=== PATIENT | female | born 1945 | race Two or more races ===

== ENCOUNTER 2020-02-06 16:03 | Inpatient (IN) | payer MEDICARE, MEDICAID ==
[~2020-02-06] VITALS: Ht 165.1 cm; Wt 75.1 kg
[2020-02-06] MEDS ORDERED: RIVA15TA PO (16:51)
[2020-02-06] MEDS ORDERED: CAND1TAB PO (16:52)
[2020-02-06] MEDS ORDERED: TRAM50TA2 PO (16:52)
[2020-02-06] MEDS ORDERED: METO-99 PO (16:52)
--- NOTE | 2020-02-06 16:53 | NUR ---
pt to ed from w covid sx (sob, fatigue) and afib rvr 130-140s. not new onset, anticoag w/ xarelto, sts med compliant. vss. lungs ctab. no cough. son at bedside to translate, swiss. labs drawn piv est. call gil. as
[2020-02-06 17:12] LABS: BASOPHILS # (AUTO) 0.03 x10^3/uL (0-0.1); BASOPHILS % (AUTO) 0 % (0-1); EOSINOPHILS # (AUTO) 0.13 x10^3/uL (0-0.4); EOSINOPHILS % (AUTO) 2 % (1-7); LYMPHOCYTES # (AUTO) 0.95 x10^3/uL (1-3.4); LYMPHOCYTES % (AUTO) 14 % (22-44); MD NO; MEAN CORPUSCULAR HEMOGLOBIN 31.2 pg (27.0-34.8); MEAN PLATELET VOLUME 9.2 fL (7.4-10.4); MONOCYTES % (AUTO) 6 % (2-9); NEUTROPHILS % (AUTO) 78 % (42-75); PLATELET COUNT 226 x10^3/uL (130-400); RED BLOOD COUNT 4.67 x10^6/uL (3.82-5.3); RED CELL DISTRIBUTION WIDTH 13.6 % (9.6-15.2)
[2020-02-06] MEDS ORDERED: DILTIAZEM 5 MG/ML, 5ML IVPush STA (17:15)
[2020-02-06 17:24] LABS: ANION GAP 8 mmol/L (5-15); CALCIUM 8.6 mg/dL (8.5-10.1); CHLORIDE 102 mmol/L (98-107)
[2020-02-06] MEDS ORDERED: DILTIAZEM 5 MG/ML, 5ML ONE (17:26)
[2020-02-06 17:29] LABS: ALANINE AMINOTRANSFERASE 38 U/L (12-78); ALKALINE PHOSPHATASE 111 U/L (45-117); BILIRUBIN,TOTAL 0.5 mg/dL (0.2-1.0); CREATININE 0.99 mg/dL (0.55-1.02); TOTAL PROTEIN 7.6 g/dL (6.4-8.2); TROPONIN I < 0.015 ng/mL (0.000-0.045)
--- NOTE | 2020-02-06 17:37 | NUR ---
dilt per mar w/ improvement to afib 80-90s. bp stable. nad, pt drowsing. as
--- NOTE | 2020-02-06 19:11 | NUR ---
failed roadtest desatted to 85% on RA while walking when walked by edta. as
--- NOTE | 2020-02-06 19:44 | NUR ---
pt tbadm cards. as
--- NOTE | 2020-02-06 20:20 | NUR ---
li benton: [phone]
--- NOTE | 2020-02-06 20:54 | NUR ---
pt remains afib 100s. nad. awaiting bed. as
[2020-02-06] MEDS ORDERED: DILTIAZEM 5 MG/ML, 5ML IVPush PRN (21:30)
[2020-02-06] MEDS ORDERED: ONDANSETRON 2MG/ML, 2ML IVPush PRN (21:30)
[2020-02-06] MEDS ORDERED: MELATONIN 5 MG TABLET PO PRN (21:30)
[2020-02-06] MEDS ORDERED: ACETAMINOPHEN 325 MG TABLET PO PRN (21:30)
--- NOTE | 2020-02-06 21:35 | NUR ---
report to xenia robert. as
[2020-02-06 22:07] VITALS: BP 148/76
[2020-02-06] MEDS: METOPROLOL TARTRATE 50 MG TAB PO SCH (22:50)
[2020-02-06 23:09] VITALS: BP 148/76
[2020-02-07 00:26] VITALS: BP 128/81
[2020-02-07 07:30] VITALS: BP 106/69
[2020-02-07] MEDS: SENNA/DOCUSATE TABLET PO SCH (08:29)
[2020-02-07] MEDS: HYDROCHLOROTHIAZIDE 12.5 MG CAPSULE PO SCH (08:29)
[2020-02-07] MEDS: RIVAROXABAN 15 MG TABLET PO SCH (08:30)
[2020-02-07] MEDS: METOPROLOL TARTRATE 50 MG TAB PO SCH ×2 (08:30→20:33)
[2020-02-07] MEDS ORDERED: LOSARTAN 100 MG TAB PO SCH (09:00)
[2020-02-07 13:05] VITALS: BP 121/76
[2020-02-07 19:38] VITALS: BP 121/79
[2020-02-08 00:24] VITALS: BP 123/79
[2020-02-08 07:10] LABS: CREATININE 0.96 mg/dL (0.55-1.02)
[2020-02-08 07:55] VITALS: BP 131/74
[2020-02-08] MEDS ORDERED: LOSARTAN 50MG TABLET PO SCH (09:01)
[2020-02-08] MEDS: RIVAROXABAN 15 MG TABLET PO SCH (09:03)
[2020-02-08] MEDS: METOPROLOL TARTRATE 50 MG TAB PO SCH ×2 (09:03→20:35)
[2020-02-08] MEDS: HYDROCHLOROTHIAZIDE 12.5 MG CAPSULE PO SCH (09:03)
[2020-02-08] MEDS: SENNA/DOCUSATE TABLET PO SCH (09:03)
[2020-02-08] MEDS: LOSARTAN 50MG TABLET PO SCH (09:26)
[2020-02-08 13:26] VITALS: BP 140/86
[2020-02-08 18:34] VITALS: BP 140/77
[2020-02-09 00:19] VITALS: BP 119/79
[2020-02-09 07:34] VITALS: BP 122/64
[2020-02-09 09:26] VITALS: BP 129/85
[2020-02-09] MEDS: LOSARTAN 50MG TABLET PO SCH (09:27)
[2020-02-09] MEDS: METOPROLOL TARTRATE 50 MG TAB PO SCH (09:27)
[2020-02-09] MEDS: RIVAROXABAN 15 MG TABLET PO SCH (09:28)
[2020-02-09] MEDS: HYDROCHLOROTHIAZIDE 12.5 MG CAPSULE PO SCH (09:28)
[2020-02-09] MEDS: SENNA/DOCUSATE TABLET PO SCH (09:28)
[2020-02-09] MEDS ORDERED: METO50TA82 PO (13:51)
[2020-02-09 13:56] VITALS: BP 104/68
== END 2020-02-09 17:02 | disposition home or self-care (01) | DRG 189 ==
LOC: ED 18:15 → EDIP 20:04 → INTOOBSV 20:04 → 4EST 21:58 → OBSVTOIN 02-08 14:32
PROVIDERS: ADMIT Internal Medicine; ATTEND Internal Medicine
DX: J96.01 Acute respiratory failure with hypoxia (principal); I48.19 Other persistent atrial fibrillation; D68.69 Other thrombophilia; Z20.828 Contact with and (suspected) exposure to other viral communicable diseases; I10 Essential (primary) hypertension; E78.5 Hyperlipidemia, unspecified; Z79.01 Long term (current) use of anticoagulants; Z86.718 Personal history of other venous thrombosis and embolism
CPT/HCPCS: 36415; 71045; 80053; 82565; 83880; 84443; 84484; 85025; 93005; 93306; 96374; 99285; G0378